=== PATIENT | female | born 1980 | race Caucasian/White ===

== ENCOUNTER 2022-03-06 10:44 | Outpatient (REF) | payer MEDICAID, SELFPAY ==
--- NOTE | 2022-03-06 10:15 | PAPFT_PTH ---
PATIENT: Lydia Keen LOC: [facility]#:[id number] AGE/SX: 42/F ROOM: RE03/06/[address]: Pavithra Salgado : 1980 BED: DIS: 03/06/2022 SPEC #: [id number] RECD: 03/06/22 17:54 STATUS: HILARIA REQ #: [id number] SANJUANITA: 03/06/22 10:[address]: Pavithra Salgado DEPT: [facility] Cytology RECD BY: Priti Love ENTERED: 03/06/22 17:55 SP TYPE: PAPFT OTHR DR: Ingrid Rosas V Tissues: 1 - CX/ENDOCX FOR PAP SMEARS Procedures: PAP THIN PREP/UVM Screening HPV DNA PROBE Comments: [id number]
[2022-03-06 15:31] LABS: HGB 10.4 g/dL (11.2-15.7); MCH 23.6 pg (27.0-33.0); MCHC 31.5 % (32.0-36.0); MCV 75 fL (80-95); MPV 9.9 fL (8.0-11.0); Platelet Count 372 10^3/uL (130-400); RBC 4.41 10^6/uL (3.93-5.22); WBC 8.02 10^3/uL (4.4-10.8)
[2022-03-06 16:06] LABS: ALT 25 U/L (14-59); AST 20 U/L (15-37); Albumin 3.8 g/dL (3.4-5.0); Alkaline Phosphatase 71 U/L (46-116); Anion Gap 8.4 mmol/L (3-11); BUN 14 mg/dL (7-18); Bilirubin, Total 0.2 mg/dL (0.2-1.0); CO2 25.6 mmol/L (21.0-32.0); CREATININE 0.7 mg/dL (0.55-1.02); Calcium 8.9 mg/dL (8.5-10.1); Calculated LDL 96 mg/dL (<100); Chloride 104 mmol/L (98-107); Cholesterol 163 mg/dL (<200); Estimated GFR 111.36 (mL/min/1.73m2); Glucose 90 mg/dL (74-106); HDL Cholesterol 56 mg/dL (40-60); Potassium 4.1 mmol/L (3.5-5.1); Sodium 138 mmol/L (136-145); TSH (W/Ref FT4) 1.32 uIU/mL (0.36-3.74); Total Protein 7.4 g/dL (6.4-8.2); Triglyceride 59 mg/dL (<150)
[2022-03-07 08:45] LABS: Iron 19 ug/dL (50-170); Total Iron Binding Capacity 428 ug/dL (250-450); Transferrin Sat 4 % (15-50)
[2022-03-07 08:59] LABS: Ferritin 7 ng/mL (8-252)
[2022-03-07 09:38] LABS: HIV-1/2 Ag & Ab Screen Negative (Negative)
== END 2022-03-06 10:45 | disposition home or self-care (01) ==
LOC: NCHCN 10:44
PROVIDERS: PCP Family Medicine; Visit Provider Nurse Practitioner Family
DX: N92.0 Excessive and frequent menstruation with regular cycle (principal); Z13.220 Encounter for screening for lipoid disorders; Z12.4 Encounter for screening for malignant neoplasm of cervix; Z11.4 Encounter for screening for human immunodeficiency virus [HIV]; Z11.51 Encounter for screening for human papillomavirus (HPV)
CPT/HCPCS: 80053; 80061; 85027; 87389; 88142; 82728; 83540; 83550; 84443; 87624

== ENCOUNTER → 2022-03-31 02:01 | Outpatient (CLI) | payer MEDICAID, SELFPAY ==
--- NOTE | 2022-03-31 09:15 | DI.US_ITS ---
Exam(s) US PELVIS TRANSVAGINAL EXAM: US PELVIS TRANSVAGINAL CLINICAL HISTORY: HEAVY MENSTRUATION, N92.0 TECHNIQUE: Transabdominal and transvaginal imaging was performed using standard protocol. COMPARISON: No exams were available for comparison FINDINGS: Transabdominal images limited by lack of bladder distention. UTERUS: Anteverted. 10.4 x 5.9 x 5.7 cm Endometrium: 6 mm Myometrium: Unremarkable. No fibroids identified. Cervix: Nabothian cysts. OVARIES: Right: Cyst or mass: 1.5 centimeter follicle Left: Cyst or mass: 2 small follicles. DOPPLER: Color: Symmetric and uniform flow to both ovaries. No hyperemia. CUL-DE-SAC: Free fluid: None. IMPRESSION: 1. Normal-appearing uterus with endometrial stripe within normal limits. 2. Unremarkable bilateral ovaries. DATA REPOSITORY:
== END ==
PROVIDERS: PCP Family Medicine; Visit Provider Nurse Practitioner Family
DX: N92.0 Excessive and frequent menstruation with regular cycle (principal); N83.01 Follicular cyst of right ovary; N83.02 Follicular cyst of left ovary
CPT/HCPCS: 76830; 76856

== ENCOUNTER 2022-04-09 16:54 | Outpatient (REF) | payer MEDICAID, SELFPAY ==
[2022-04-09 15:23] LABS: HGB 11.9 g/dL (11.2-15.7)
== END 2022-04-09 16:55 | disposition home or self-care (01) ==
LOC: NCHCN 16:54
PROVIDERS: PCP Family Medicine; Visit Provider Family Medicine
DX: D50.9 Iron deficiency anemia, unspecified (principal)
CPT/HCPCS: 85018

== ENCOUNTER 2022-06-12 15:11 | Outpatient (CLI) | payer MEDICAID, SELFPAY ==
[2022-06-12 14:28] LABS: HCT 36.2 % (36.0-46.0); HGB 11.7 g/dL (11.2-15.7); MCHC 32.3 % (32.0-36.0); MCV 83 fL (80-95); MPV 9.2 fL (8.0-11.0); Platelet Count 379 10^3/uL (130-400); RBC 4.34 10^6/uL (3.93-5.22); RDW 15.7 % (11.7-14.6); RDW-SD 48.2 fL; WBC 10.02 10^3/uL (4.4-10.8)
[2022-06-12 15:11] LABS: D-Dimer 529 ng/mlFEU (<500)
[2022-06-12 15:17] LABS: Ferritin 21 ng/mL (8-252)
== END 2022-06-12 15:12 | disposition home or self-care (01) ==
LOC: LBO 15:12
PROVIDERS: PCP Family Medicine; Visit Provider Nurse Practitioner Family
DX: D50.9 Iron deficiency anemia, unspecified (principal); R07.9 Chest pain, unspecified
CPT/HCPCS: 36415; 85027; 82728; 85379

== ENCOUNTER 2022-06-13 13:52 | Outpatient (CLI) | payer MEDICAID, SELFPAY ==
--- NOTE | 2022-06-13 | DI.CT_ITS ---
Exam(s) CT CHEST PE CTA EXAM: CT CHEST PE CTA CLINICAL HISTORY: CHEST PAIN R07.9, INTERMITTENT, STARTED ORAL CONTRACEPTIVE 2 MO AGO. TECHNIQUE: Imaging Protocol: Axial CT angiography was performed with multi-slice acquisition and mu lti-planar reconstructions as well as axial, coronal and sagittal MIP reconstructions. CONTRAST MATERIAL: Intravenous: Omnipaque 350 Contrast volume:100 ml COMPARISON: No exams were available for comparison FINDINGS: Pulmonary Arteries: No evidence of filling defect to suggest pulmonary emboli. Tracheobronchial tree: Patent where visualized. Mediastinum and Shanelle: No dominant adenopathy or fluid collection. Pulmonary parenchyma: No consolidation or dominant measurable mass. Pleura: No effusion or pneumothorax. Heart: The heart is not dilated. No coronary artery calcifications are seen. Aorta: Thoracic aorta non-dilated. No aneurysm. No dissection. Upper abdomen: Unremarkable. Bones: Unremarkable for age. Tubes, Catheters, and Lines: None IMPRESSION: No evidence of pulmonary embolism or other acute abnormality.. RADIATION DOSE DELIVERED: 533.33mGy.cm Total DLP DATA REPOSITORY: All CT scans at this facility are submitted to the National Radiology Data Registry (NRDR) Dose Index Registry (DIR) with the [employer] (ACR). RADIATION OPTIMIZATION: All CT scans at this facility use at least one of these dose optimization te chniques: automated exposure control; mA and/or kV adjustment per patient size (includes targeted exa ms where dose is matched to clinical indication); or iterative reconstruction.
[2022-06-13] MEDS: Omnipaque 350 MG/ML 100 ML BTL IJ (14:32)
[2022-06-13] MEDS: Normal Saline - Diluent 50 ML VIAL IJ (14:38)
[2022-06-13] MEDS: Normal Saline Flush 10 ML SYR IVP (14:39)
== END 2022-06-13 14:12 ==
LOC: DI 13:53
PROVIDERS: PCP Family Medicine; Visit Provider Nurse Practitioner Family
DX: R07.89 Other chest pain (principal)
CPT/HCPCS: 71275; J3490

== ENCOUNTER 2024-07-07 14:16 | Outpatient (REF) | payer MEDICAID, SELFPAY ==
[2024-07-07 16:11] LABS: HGB 11.8 g/dL (11.2-15.7); MCH 27.4 pg (27.0-33.0); MCHC 31.9 % (32.0-36.0); MCV 86 fL (80-95); Platelet Count 283 10^3/uL (130-400); RBC 4.31 10^6/uL (3.93-5.22); RDW 14.7 % (11.7-14.6); RDW-SD 46.9 fL; WBC 6.86 10^3/uL (4.4-10.8)
[2024-07-07 16:32] LABS: Ferritin 26 ng/mL (8-252)
[2024-07-07 17:02] LABS: Iron 42 ug/dL (50-170)
[2024-07-07 17:16] LABS: Hemoglobin A1C 5.6 % (<5.7)
== END 2024-07-07 14:17 | disposition home or self-care (01) ==
LOC: NCHCN 14:16
PROVIDERS: PCP Family Medicine; Visit Provider Family Medicine
DX: Z00.00 Encounter for general adult medical examination without abnormal findings (principal); D50.9 Iron deficiency anemia, unspecified
CPT/HCPCS: 85027; 82728; 83036; 83540

== ENCOUNTER 2024-10-17 12:38 | Outpatient (CLI) | payer MEDICAID, SELFPAY ==
--- NOTE | 2024-10-17 10:45 | DI.US_ITS ---
Exam(s) US SOFT TISSUE EXTREMITY EXAM: US SOFT TISSUE EXTREMITY CLINICAL HISTORY: Puncture wound, T14.8XXA, eval pathology. TECHNIQUE: Ultrasound was performed using standard protocol. COMPARISON: No exams were available for comparison FINDINGS: Sonographic assessment utilizing grayscale and color Doppler imaging was performed and targeted to th e area of clinical concern. There is an irregular hyperdense area seen on the plantar surface of the foot deep to the puncture si te likely reflecting hemorrhage or clot. The hyperdense area measures 0.6 x 0.4 cm. No shadowing ec hogenic lesion is seen to suggest a foreign body. IMPRESSION: 1. No foreign body is seen sonographically. 2. Findings most suggestive of hemorrhage or clot at the site of the puncture wound. DATA REPOSITORY:
--- NOTE | 2024-10-17 13:34 | DI.RAD_ITS ---
Exam(s) XR FOOT LT COMPLETE EXAM: XR FOOT LT COMPLETE CLINICAL HISTORY: Puncture wound, T14.8XXA, eval foreign body - osteo pathology. TECHNIQUE: 2D digital imaging was performed of the left foot. Images were obtained. AP, oblique a nd lateral views were obtained. COMPARISON: US US SOFT TISSUE EXTREMITY from 10/17/2024 FINDINGS: BONES: No acute fracture is present. No bony destructive lesion is seen. JOINTS: No dislocation present. SOFT TISSUE: There is soft tissue swelling seen in the forefoot. No radio opaque foreign body is belia ntified. IMPRESSION: 1. No acute fracture or dislocation. 2. No radiopaque foreign body is identified. DATA REPOSITORY: RADIATION DOSE DELIVERED:
== END 2024-10-17 12:58 ==
LOC: DI 12:39
PROVIDERS: PCP Family Medicine; Visit Provider Nurse Practitioner Family
DX: T14.8XXA Other injury of unspecified body region, initial encounter (principal)
CPT/HCPCS: 76881; 73630

== ENCOUNTER 2024-10-25 13:03 | Outpatient (REF) | payer MEDICAID, SELFPAY ==
[2024-10-25 16:25] LABS: ESR 15 mm/hr (0-20)
[2024-10-25 16:26] LABS: Abs Immature Grans 0.02 10^3/uL (0.0-0.06); Absolute Basophil Count 0.03 10^3/uL (0.0-0.2); Absolute Eosinophil Count 0.35 10^3/uL (0.0-0.7); Absolute Lymphocyte Count 1.25 10^3/uL (1.2-3.4); Absolute Monocyte Count 0.41 10^3/uL (0.1-0.8); Absolute Neutrophil Count 4.79 10^3/uL (1.2-6.7); Basophils % 0.4 %; Eosinophils % 5.1 %; HCT 37.3 % (36.0-46.0); HGB 12.1 g/dL (11.2-15.7); Immature Grans % 0.3 %; Lymphocytes % 18.2 %; MCH 27.9 pg (27.0-33.0); MCHC 32.4 % (32.0-36.0); MCV 86 fL (80-95); MPV 9.8 fL (8.0-11.0); Platelet Count 284 10^3/uL (130-400); RBC 4.33 10^6/uL (3.93-5.22); RDW 12.8 % (11.7-14.6); RDW-SD 40.4 fL; WBC 6.85 10^3/uL (4.4-10.8)
[2024-10-25 16:37] LABS: C-Reactive Protein 0.52 mg/dL (<or=0.5)
== END 2024-10-25 13:04 | disposition home or self-care (01) ==
LOC: NCHCN 13:03
PROVIDERS: PCP Family Medicine; Visit Provider Family Medicine
DX: L03.116 Cellulitis of left lower limb (principal)
CPT/HCPCS: 85652; 85025; 86140; 87070; 87205

== ENCOUNTER 2025-01-23 02:40 | Outpatient (CLI) | payer MEDICAID, SELFPAY ==
[2025-01-23] MEDS: Gadoterate meglumine 20 ML SYRINGE IVP (13:03)
[2025-01-23] MEDS: Normal Saline Flush 10 ML SYR IVP (13:03)
--- NOTE | 2025-01-23 13:30 | DI.MRI_ITS ---
Exam(s) MR LOWER EXTREMITY LT WO/W EXAM: MR LOWER EXTREMITY LT WO/W CLINICAL HISTORY: Left 3/4 interspace dorsal pain/cyst,retained foreign body,z18.9 TECHNIQUE: Multiplanar multisequence MRI was performed on 1.5 charis unit with both pre and post contrast infused sequences. Intravenous contrast injected was 20 mL Dotarem. COMPARISON: DX XR FOOT MIN 3 VIEWS LEFT (GENERIC) from 10/18/[address] FOOT W CONTRAST LEFT from 10/19/2024 FINDINGS: SKIN/SUBCUTANEOUS: No evidence of ulcer nor subcutaneous tracts. On the dorsal aspect of the foot,dorsal to the head of the 3rd metatarsal, there is a focus of signal abnormality measuring approximately 8 by 3 by 3 mm with surrounding enhancing inflammatory/granulation tissue. This entire finding measures approximately 1.3 cm wide by 1.2 cm AP by 1.1 cm craniocaudal. This has the appearance of a foreign body with surrounding granulation tissue. There is enhancement in the deeper soft tissues extending from this finding to the interval between the 2nd and 3rd metatarsal heads. In subcutaneous fat on the plantar aspect of the foot just distal to the 2nd metatarsal head level there is an addition area of signal abnormality which extends the from the subcutaneous level, exhibiting mild enhancement, and probably related to the patient's recently treated plantar level infection s econdary to an apparent foreign body puncture wound in October 2024. Suspect that this is granulation tissue. There is no evidence of formed abscess at this level and there is no subjacent tenosynovitis nor intraosseous signal abnormality in the 2nd metatarsal head nor within the adjacent proximal phalanx of the 2nd toe. There is no significant joint effusion in the metatarsophalangeal joint but there does appear to be some fluid between the heads of the 1st and 2nd metatarsals consistent with interdigital bursitis. There is no evidence of Caballero's interdigital neuroma. BONES/JOINTS: No evidence of fracture nor bone contusion. No evidence of osteomyelitis. LISFRANC JOINT: Intact LIGAMENTS: No obvious tears evident. MUSCULOTENDINOUS STRUCTURES: No tendon tears nor tenosynovitis evident. PLANTAR FASCIA: Unremarkable. SOFT TISSUES: Unremarkable. OTHER FINDINGS: On the medial aspect of the foot there is an ununited apophysis at the level the navicular tuberosity/attachment of the tibialis posterior tendon. IMPRESSION: 1. On the dorsal aspect of the forefoot there is a finding which has appearance of a nonmetallic foreign body with surrounding enhancing inflammatory and/or granulation tissue. Cannot exclude abscess. This is dorsal to the head of the 3rd metatarsal. There is some mild enhancement extending from this level between the heads of the 2nd and 3rd metatarsals towards a very minimally enhancing finding on the plantar aspect of the foot subjacent to the head of the 2nd metatarsal and proximal phalanx, without evidence of a similar foreign body at this level. Correlation with past medical and instrumentation/surgical history in the forefoot is recommended. I suspect that this granulation tissue is related to the documented prior puncture wound on the plantar aspect of the foot at this level which resulted in the patient having been hospitalized for intravenous antibiotics in October 2024. 2. There is intermetatarsal bursitis between the 1st and 2nd metatarsal heads. 3. There is no evidence of osteomyelitis. DATA REPOSITORY:
--- NOTE | 2025-01-23 17:21 | DI.VRAD_ITS ---
PROCEDURE INFORMATION: Exam: MR Left Lower Extremity Without and With Contrast; Forefoot Exam date and time: 01/23/2025 12:38 PM Age: 44 years old Clinical indication: Other: Left 3/4 interspace dorsal pain/cyst, retained foreign body TECHNIQUE: Imaging protocol: MR of the left foot without and with contrast. Exam focused on the forefoot. Total images: 928 Contrast material: DOTAREM; Contrast volume: 20 ml; Contrast route: INTRAVENOUS (IV); COMPARISON: CT FOOT W CONTRAST LEFT 10/19/2024 1:15 AM FINDINGS: Bones/joints: No significant bone marrow edema or abnormal bony enhancement. Subchondral cysts inferior aspect talus. Mild synovial thickening and enhancement 3rd metatarsal phalangeal joint consistent with synovitis. Soft tissues: 5 x 3 mm focus consistent with the clinical concern for a foreign body within the dorsal soft tissues of the forefoot at the level of the 2nd and 3rd metatarsal heads. Lesion is relatively isointense to marrow signal. Surrounding enhancing inflammatory/granulation tissue. Trace fluid retrocalcaneal bursa. Dorsal soft tissue swelling. Minimal tenosynovitis extensor tendon 3rd digit MTP level. IMPRESSION: 1. Confirmatory foreign body. 2. Mild MTP joint synovitis. No evidence of osteomyelitis. Dictated and Authenticated by: Helder Lara MD. Orderin Sosa Nava MD
== END 2025-01-23 03:00 ==
LOC: DI 02:40
PROVIDERS: PCP Family Medicine; Visit Provider Podiatrist
DX: Z18.9 Retained foreign body fragments, unspecified material (principal); L72.0 Epidermal cyst; M79.672 Pain in left foot; S90.852A Superficial foreign body, left foot, initial encounter; X58.XXXA Exposure to other specified factors, initial encounter
CPT/HCPCS: 73720

== ENCOUNTER 2025-03-10 13:50 | Outpatient (CLI) | payer MEDICAID, SELFPAY ==
[2025-03-10 13:35] LABS: Abs Immature Grans 0.02 10^3/uL (0.0-0.06); HCT 40.2 % (36.0-46.0); HGB 13.2 g/dL (11.2-15.7); Immature Grans % 0.2 %; MCH 27.7 pg (27.0-33.0); MCHC 32.8 % (32.0-36.0); MCV 85 fL (80-95); MPV 8.9 fL (8.0-11.0); Platelet Count 270 10^3/uL (130-400); RBC 4.76 10^6/uL (3.93-5.22); RDW 13.0 % (11.7-14.6); RDW-SD 40.3 fL; WBC 8.94 10^3/uL (4.4-10.8)
[2025-03-10 14:06] LABS: ALT 31 U/L (14-59); AST 19 U/L (15-37); Albumin 3.6 g/dL (3.4-5.0); Alkaline Phosphatase 70 U/L (46-116); Anion Gap 10.9 mmol/L (3-11); BUN 19 mg/dL (7-18); Bilirubin, Total 0.2 mg/dL (0.2-1.0); CO2 26.1 mmol/L (21.0-32.0); Calcium 8.7 mg/dL (8.5-10.1); Chloride 103 mmol/L (98-107); Estimated GFR 93.12 (mL/min/1.73m2); Glucose 83 mg/dL (74-106); Potassium 4.2 mmol/L (3.5-5.1); Sodium 140 mmol/L (136-145); Total Protein 7.5 g/dL (6.4-8.2)
== END 2025-03-10 13:51 | disposition home or self-care (01) ==
LOC: LBO 13:50
PROVIDERS: PCP Family Medicine; Visit Provider Obstetrics & Gynecology
DX: N93.8 Other specified abnormal uterine and vaginal bleeding (principal)
CPT/HCPCS: 36415; 80053; 85025

== ENCOUNTER → 2025-04-20 02:28 | Outpatient (CLI) | payer MEDICAID, SELFPAY ==
--- NOTE | 2025-04-20 07:10 | DI.US_ITS ---
Exam(s) US PELVIS TRANSVAGINAL EXAM: US PELVIS TRANSVAGINAL CLINICAL HISTORY: Anatomy,dysfunctional uterine bleeding,n93.8 TECHNIQUE: Ultrasound of the pelvis was performed both transabdominal and transvaginal. COMPARISON: CT CT CHEST PE CTA from 06/13/2022 US US SOFT TISSUE EXTREMITY from 10/17/2024 FINDINGS: UTERUS: Nongravid and anteverted Measures 10.7 cm length x 5.9 cm AP x 6.5 cm wide. There are no uterine fibroids. Endometrial thickness measures 11 mm. There is no fluid in the endometrial canal. CERVIX: There are multiple small nabothian cysts in the cervix. RIGHT OVARY: Measures 4.0 x 1.3 x 3.4. cm. Contains diffuse follicular cysts measuring up to 1.5 cm size. No solid masses. LEFT OVARY: Measures 0.7 x 2.1 x 2.2 cm Contains a dominant cyst measuring 1.8 x 1.7 x 1.6 cm. No solid lesions. CUL-DE-SAC: There is no free fluid in the adnexal regions and cul-de-sac. However, there are dilated veins on both sides of the uterus which may indicate an element of pelvic congestion syndrome. IMPRESSION: 1. Endometrial thickness is 11 millimeters which is upper normal for this age group. There is no fluid in the endometrial canal. 2. There are follicular cysts in both ovaries, the largest being in the left ovary measures 18 x 17 x 16 mm. 3. There are dilated veins on both sides of the uterus. Suspicious for pelvic congestion syndrome. There is no free fluid in the pelvis. DATA REPOSITORY:
== END ==
LOC: DI 02:28
PROVIDERS: PCP Family Medicine; Visit Provider Obstetrics & Gynecology
DX: N93.8 Other specified abnormal uterine and vaginal bleeding (principal); N83.01 Follicular cyst of right ovary; N83.02 Follicular cyst of left ovary; R93.5 Abnormal findings on diagnostic imaging of other abdominal regions, including retroperitoneum
CPT/HCPCS: 76830; 76856

== ENCOUNTER 2025-04-21 15:35 | Outpatient (REF) | payer MEDICAID, SELFPAY ==
--- NOTE | 2025-04-21 15:00 | ENDOMET_PTH ---
PATIENT: Lydia Keen LOC: [facility] U#:[id number] AGE/SX: 45/F ROOM: RE04/21/[address]: Nicole Rodriguez DO : 1980 BED: DIS: 04/21/2025 SPEC #: [id number] RECD: 04/24/25 12:19 STATUS: HILARIA REQ #: [id number] SANJUANITA: 04/21/25 15:[address]: Nicole Rodriguez DEPT: Surgical Specimen RECD BY: Priti Love ENTERED: 04/24/25 12:20 SP TYPE: Endomet OTHR DR: Ingrid Rosas V Tissues: 1 - ENDOMETRIUM BX/ENRIQUE Procedures: GROSS AND MICRO LEVEL 4 Comments: [id number]
== END 2025-04-21 15:36 | disposition home or self-care (01) ==
LOC: LBN 15:35
PROVIDERS: PCP Family Medicine; Visit Provider Obstetrics & Gynecology
DX: R87.619 Unspecified abnormal cytological findings in specimens from cervix uteri (principal)
CPT/HCPCS: 88305

== ENCOUNTER → 2025-04-27 06:07 | Outpatient (CLI) | payer MEDICAID, SELFPAY ==
--- NOTE | 2025-04-27 | DI.MAMMO_ITS ---
Exam(s) MAMMO SCREENING EXAM: MAMMO SCREENING CLINICAL HISTORY: SCREENING, Z12.31 TECHNIQUE: Mammograms were interpreted according to the usual protocol including computer analysis with CAD system, tomosynthesis and C-view imaging. COMPARISON: None. Baseline examination. FINDINGS: The breasts are composed of heterogeneously dense fibroglandular densities, Breast Density category C. No suspicious masses or suspicious microcalcifications are seen. No skin thickening or abnormal axillary lymph nodes are seen. IMPRESSION: BI-RADS Category 1, Negative mammogram. Yearly screening mammography is recommended. Breast Density: Category C - The breasts are heterogeneously dense, which may obscure small masses. Breast density Category C or D implies that the patient has dense breast tissue. Dense breast tissue can make it harder to find cancer on a mammogram. Dense breast tissue is also associated with an increased risk of breast cancer. This information about the result of the mammogram report was provided to the patient to raise their awareness. Use this report when you speak with the patient about their risks for breast cancer, which includes their family history. At that time, you may recommend additional screening tests (Ultrasound or MRI) as these tests may add significant information. A negative radiographic report should not delay biopsy if a dominant or clinically suspicious mass is present. Up to ten percent of cancers are not identified on mammography. A negative report may reinforce clinical impression. Adenosis and dense breasts may obscure an underlying neoplasm. False positive reports average 6 to 10%.
== END ==
LOC: DI 06:07
PROVIDERS: PCP Family Medicine; Visit Provider Family Medicine
DX: Z12.31 Encounter for screening mammogram for malignant neoplasm of breast (principal); R92.323 Mammographic fibroglandular density, bilateral breasts; R92.333 Mammographic heterogeneous density, bilateral breasts
CPT/HCPCS: 77063; 77067

== ENCOUNTER 2025-05-02 14:55 | Outpatient (CLI) | payer MEDICAID, SELFPAY ==
[2025-05-02 15:08] LABS: Abs Immature Grans 0.02 10^3/uL (0.0-0.06); HCT 38.9 % (36.0-46.0); HGB 12.8 g/dL (11.2-15.7); Immature Grans % 0.2 %; MCH 27.7 pg (27.0-33.0); MCHC 32.9 % (32.0-36.0); MCV 84 fL (80-95); MPV 9.2 fL (8.0-11.0); Platelet Count 307 10^3/uL (130-400); RBC 4.62 10^6/uL (3.93-5.22); RDW 13.2 % (11.7-14.6); RDW-SD 40.5 fL; WBC 9.18 10^3/uL (4.4-10.8)
== END 2025-05-02 14:56 | disposition home or self-care (01) ==
LOC: LBO 14:55
PROVIDERS: PCP Family Medicine; Visit Provider Obstetrics & Gynecology
DX: Z01.818 Encounter for other preprocedural examination (principal)
CPT/HCPCS: 36415; 86850; 86900; 86901; 85025

== ENCOUNTER 2025-05-03 06:13 | Day surgery (SDC) | payer MEDICAID, SELFPAY ==
[2025-05-03] VITALS (21 sets, daily range): BP systolic 87–120; BP diastolic 46–77; PULSE 52–80; RESP 11–29; TEMP 36.4–36.5; O2SAT 93–98; BMI 41.7
[2025-05-03] MEDS: Lactated Ringers 1,000 ML 125 ML IV (06:46)
--- NOTE | 2025-05-03 07:04 | ANES.PREOP_ITS ---
General Info Date of Service Date Performed: 05/03/25 Height: 5 ft 5 in Weight: 113.7 kg Body Mass Index (BMI): 41.7 Surgical Procedure: Operation Date: 05/03/25 07:40 Proposed Procedure Side Surgeon p Dilation & Curettage with Hysteroscopy DO ángela Ferrara Insertion of IUD Nicole Rodriguez DO Actual Procedure Side Surgeon p Dilation & Curettage with Hysteroscopy Not Applicable DO ángela Ferrara Insertion of IUD Not Applicable Nicole Rodriguez DO Pre-Op Diagnosis Post-Op Diagnosis Enlarged uterus Meds Allergies and Home Medications Allergies Allergy/AdvReac Type Severity Reaction Status Date / Time No Known Allergies Allergy Verified 05/03/25 06:35 Home Medication ?Medication ?Instructions ?Recorded ferrous sulfate 325 mg (65 mg 325 mg PO BID 01/26/25 iron) tablet (Feosol) methylphenidate HCl 10 mg tablet 10 mg PO QD-BID 01/26 Current Visit Medications: Current Medications Generic Name Dose Route Start Last Admin Trade Name Freq PRN Reason Stop Dose Admin Ringer's Solution 1,000 mls @ 125 mls/hr 05/03/25 06:00 05/03/25 06:46 IV 05/03/25 23:59 125 mls/hr INFUSION ELAINE Administration Sodium Chloride 0 ml 05/03/25 06:00 Normal Saline Flush 10 Ml Syr IV 05/03/25 23:59 PRN PRN Sodium Chloride 0 ml 05/03/25 06:00 Normal Saline 10 Ml Vial IJ 05/03/25 23:59 DIRECTED PRN Sterile Water 0 ml 05/03/25 06:00 Water,Injection,Sterile 10 Ml Vial IJ 05/03/25 23:59 DIRECTED PRN PFSH Active Problems Active Problems: Problem Status Onset Code Preoperative testing Acute Z01.818 Enlarged uterus Acute N85.2 Dysfunctional uterine bleeding Acute N93.8 Foreign body in left foot Acute S90.852A Pain in left foot Acute M79.672 Inclusion cyst Acute L72.0 Retained foreign body Acute Z18.9 Medical History Medical History Cellulitis of left foot Tobacco Smoking/Tobacco Use Status: Never Passive smoking exposure: No Alcohol Alcohol Intake: current Alcohol intake frequency: a few times a month Substance Use Substance use: Never Substance use type: does not use Prental History History 3 Para 3 Hx # Term Pregnancies 3 Multiple births Hx # Pregnancies Ectopic pregnancies AB induced Hx Number of Living Children 3 AB spontaneous Past Pregnancies Del. Date GA/Weeks # Preg Succ Route Wgt Sex Labor Lgth Anesth esia Location [facility] 01/14/05 23 Yes vaginal Female home 08/14/06 Yes vaginal Female Home 05/14/08 Yes vaginal Male Home Delivery Date: 01/14/05 Last Updated by: PAUL Payne Delivery Date: 08/14/06 Last Updated by: PAUL Payne Delivery Date: 05/14/08 Last Updated by: PAUL Payne Vital Signs and Lab Results Vital Signs Most Recent Vital Signs in EMR: Most Recent Vital Signs Temp Pulse Resp BP Pulse Ox 36.5 C 76 18 120/77 97 05/03/25 06:15 05/03/25 06:15 05/03/25 06:15 05/03/25 06:15 05/03/25 06:15 Point of Care Results Point of Care Results: POC- Test(urine) Negative 05/03/25 06:45 Lab Results Blood Type / Crossmatch: Antibody Screen NEGATIVE 05/02/25 Complete Blood Count: WBC, (4.4-10.8) 9.18 10^3/uL 05/02/25, 15:00 RBC, (3.93-5.22) 4.62 10^6/uL 05/02/25, 15:00 Hgb, (11.2-15.7) 12.8 g/dL 05/02/25, 15:00 Hct, (36.0-46.0) 38.9 % 05/02/25, 15:00 Plt Count, (130-400) 307 10^3/uL 05/02/25, 15:00 Panel: Urine HCG, Qual Negative 04/21/25, 14:32 Anesthesia Assessment and Plan Anesthesia History Personal History: No History of Anesthesia Complications Family History: No Family History of Anesthesia Complications Exercise Tolerance Exercise Tolerance: Metabolic Equivalents>4 Pertinent Negatives Pertinent Negatives: No Symptoms of GERD Cardiac & Pulmonary Exam Cardiac Exam: Normal S1/S2 Heart Sounds Pulmonary Exam: Clear Bilateral Breath Sounds Implantable Cardiac Device Does patient have a Pacemaker or an ICD?: No Airway Exam Known Difficult Airway: No Mallampati Class: 2 Mouth Opening: Normal (> 3cm) Thyromental Distance: Greater than 3 cm Neck Range of Motion: Full ROM Neck Circumference: Normal Teeth Condition: Loose or Chipped (34 & 44) ASA Classification ASA Score: ASA 2 Emergency Case?: No NPO Status NPO Status: NPO Clears >2 hours, Solids >8 hours Status Status: Negative HCG (POC) Anesthesia Plan Resuscitation Status: Full Code Anesthesia Technique: General Anesthesia Airway Planned: LMA Monitors Used: Standard Monitors and SedLine
--- NOTE | 2025-05-03 07:40 | ENDO_PTH ---
PATIENT: Lydia Keen LOC: [facility] U#:[id number] AGE/SX: 45/F ROOM: RE05/03/[address]: Nicole Rodriguez DO : 1980 BED: DIS: 05/03/2025 SPEC #: [id number] RECD: 05/03/25 12:20 STATUS: HILARIA [facility] #: [id number] SANJUANITA: 05/03/25 07:[address]: Nicole Rodriguez DEPT: Surgical Specimen RECD BY: Priti Love ENTERED: 05/03/25 12:22 SP TYPE: Endo OTHR DR: Ingrid Rosas V Tissues: 1 - ENDOCERVICAL BX/CURRETTE 2 - ENDOMETRIUM BX/CURRETTE Procedures: GROSS AND MICRO LEVEL 4 Comments: [id number]
--- NOTE | 2025-05-03 08:02 | W.PM.OP ---
Operative Note Operative Note PRE-OP DIAGNOSIS: Dysfunctional uterine bleeding POST-OP DIAGNOSIS: same PROCEDURE: Hysteroscopy, dilation and curettage, fractional. Placement of Mirena IUD SURGEON: Nicole Rodriguez ANESTHESIA TYPE: General LMA/ETT Refer to Anesthesia Record ESTIMATED BLOOD LOSS: 5 PATHOLOGY: other (1. Endocervical curettage 2. Endometrial curettage) COMPLICATIONS: None Patient was transported to: PACU Implants: Mirena system Lot number: [id number] Expiration Indications: Ongoing dysfunctional uterine bleeding Findings: Smooth the plush endocervix and endometrium. No intramural fibroid or polyp appreciated. Appropriate placement of Mirena system Procedure Description: After full informed consent was obtained, negative status verified, patient voided prior to ending the OR. Patient was placed in dorsal supine position and general anesthesia administered via LMA. She was then placed in the modified dorsolithotomy position and prepped and draped in the usual sterile fashion. No antibiotic prophylaxis was required. Pneumatic compression stockings were placed for DVT prophylaxis. A timeout was held. Appropriate examination of the abdomen and pelvis was performed revealing a uterus that is slightly enlarged though globally mobile, without discrete masses and no adnexal masses. At this point a speculum was inserted into the vaginal vault and the cervical os identified. A single-tooth tenaculum was used to grasp the anterior lip of the cervix for stabilization. The cervix was dilated to the point that a 4 mm hysteroscope could be passed without difficulty. With instillation of normal saline direct visualization was undertaken of the entire endocervix and endometrium. Both tubal ostia were visualized. The cavity appeared smooth and regular, though the endometrium was somewhat plush. There was no evidence of polyp or fibroid. At this point the hysteroscope portion was terminated and a fractional dilation and curettage performed with endocervical curettage followed by endometrial curettage. Initial IUD attempt at insertion was made however, the initial device would not retract into the insertion arm. This device was discarded. A second Mirena system was utilized. The uterus sounded to 9 cm. Device inserted through the endocervix to the fundus and deployed. Strings cut to 3 cm. Tenaculum was removed and puncture sites were hemostatic. Speculum was removed from the vaginal vault and the patient was returned to the dorsal supine position. Fluid deficit from the hysteroscope, 45 cc of normal saline. Patient awoke from anesthesia without difficulty and was taken the postanesthesia care unit in stable condition. EBL: 5 mL Fluids: Crystalloid per anesthesia +45 cc of normal saline instillation at the time of hysteroscope Pathology: 1. Endocervical curettage 2. Endometrial curettage Implants: Mirena system as above. Findings: As above. Date of Procedure: 05/03/25
--- NOTE | 2025-05-03 08:31 | W.ANESPOSTOP ---
Postoperative Evaluation Date, Time and Location Date Performed: 05/03/25 Time Performed: 08:31 Patient Location: PACU Vital Signs Most Recent Imported Vital Signs: Most Recent Vital Signs Temp Pulse Resp BP Pulse Ox 36.5 C 72 13 94/62 L 97 05/03/25 08:09 05/03/25 08:21 05/03/25 08:21 05/03/25 08:21 05/03/25 08:21 Assessment Mental Status: Awake (Alert & Oriented to Patient Baseline) Airway and Respiratory Function: Patent airway with normal (patient baseline) respiratory exam Cardiovascular Function: Hemodynamically Stable Hydration Status: Adequately Hydrated Nausea & Vomiting: No Nausea or Vomiting Pain: Pt. Denies Any Pain Peripheral Nerve Block: Patient did not receive a nerve block
== END 2025-05-03 09:37 | disposition home or self-care (01) ==
PROVIDERS: PCP Family Medicine; Visit Provider Obstetrics & Gynecology
PROC: 0UDB8ZZ Extraction of Endometrium, Via Natural or Artificial Opening Endoscopic (ICD-10-PCS; CPT 58558; principal; 2025-05-03 07:30)
PROC: (CPT 58558; 2025-05-03 07:30)
DX: N93.9 Abnormal uterine and vaginal bleeding, unspecified (principal)
CPT/HCPCS: 58558; 58300; 88305; J0131; J1100; J1885; J2003; J2405; J2704; J3010